=== PATIENT | male | born 1935 | race African-American/Black ===

== ENCOUNTER 2019-06-05 20:35 | Inpatient (IN) | payer MEDICARE, MEDICAID ==
[~2019-06-05] VITALS: Ht 188 cm; Wt 97.5 kg
[~2019-06-05 20:35] MED LIST: DILANTIN PO; FURO80TA87; METF500T; PHEN-434; SIMV5TAB2
[2019-06-05] MEDS ORDERED: NITROGLYCERIN OINT 1GM/INCH UDPKT TD ONE (21:00)
[2019-06-05] MEDS ORDERED: ENALAPRIL 1.25 MG in DEXTROSE 5% WATER 49 ML IV ONE (21:00)
[2019-06-05] MEDS ORDERED: FUROSEMIDE 40MG/4ML VIAL IVP ONE (21:00)
[2019-06-05] MEDS ORDERED: ENALAPRIL 1.25MG/ML VIAL 1ML IV ONE (21:32)
[2019-06-05 21:53] LABS: BG CARBOXYHEMOGLOBIN 0.4 % (0.5-1.5); BG DEOXYHEMOGLOBIN 1.5 % (0.0-5.0); BG FRACTION INSPIRED OXYGEN 40; BG HCO3 ACT 28.7 mmol/L (22.0-26.0); BG METHEMOGLOBIN 0.1 % (0.0-1.5); BG OXYGEN SATURATION 98.5 % (92.0-98.5); BG PCO2 53.4 mmHg (35.0-45.0); BG PH 7.348 (7.350-7.450); BG SAMPLE SITE RIGHT RADIAL; BG TOTAL HEMOGLOBIN 13.3 g/dL (12.0-18.0); BG VENT MODE MASK - BIPAP
[2019-06-05 23:04] LABS: BASOPHILS % 0.5 % (0.0-2.0); EOSINOPHILS % 4.1 % (0.0-5.0); HEMATOCRIT. 35.9 % (42.0-52.0); HEMOGLOBIN. 11.9 g/dL (14.0-18.0); LYMPHOCYTES % 20.9 % (20.0-50.0); MEAN CORPUSCULAR HEMOGLOBIN 27.9 pg (28.0-32.0); MEAN CORPUSCULAR VOLUME 84.4 fL (80.0-94.0); MEAN PLATELET VOLUME 8.9 fl (7.4-10.4); MONOCYTES % 8.4 % (2.0-8.0); NEUTROPHILS % 66.1 % (40.0-76.0); PLATELET 189 x1000/uL (130-400); RED BLOOD CELL COUNT 4.25 mill/uL (4.7-6.1); RED CELL DISTRIBUTION WIDTH 15.5 % (11.6-14.6)
[2019-06-05 23:07] LABS: CHLORIDE 108 mEq/L (98-107)
[2019-06-06] VITALS (13 sets, daily range): BP systolic 110–157; BP diastolic 60–97
[2019-06-06] MEDS ORDERED: ACETAMINOPHEN 325MG TABLET PO PRN (01:45)
[2019-06-06] MEDS ORDERED: HYDROCODONE/ACETAMINOPHEN 5/325MG TABLET PO PRN (01:45)
[2019-06-06] MEDS ORDERED: IPRATROPIUM/ALBUTEROL 0.5-3(2.5)MG/3ML NEB HHN PRN (01:45)
[2019-06-06] MEDS ORDERED: DEXTROSE 50% WATER 50ML SYRINGE IV PRN (01:45)
[2019-06-06] MEDS: METHYLPREDNISOLONE SOD SUCC 40 MG/ML VIAL IV SCH ×3 (03:28→17:50)
[2019-06-06] MEDS: IPRATROPIUM/ALBUTEROL 0.5-3(2.5)MG/3ML NEB HHN SCH ×5 (04:25→20:50)
[2019-06-06 05:50] LABS: BASOPHILS % 0.3 % (0.0-2.0); EOSINOPHILS % 3.7 % (0.0-5.0); HEMATOCRIT. 36.9 % (42.0-52.0); HEMOGLOBIN. 12.2 g/dL (14.0-18.0); MEAN CORPUSCULAR HEMOGLOBIN 28.3 pg (28.0-32.0); MEAN CORPUSCULAR VOLUME 85.2 fL (80.0-94.0); MEAN PLATELET VOLUME 9.3 fl (7.4-10.4); MONOCYTES % 14.5 % (2.0-8.0); NEUTROPHILS % 49.5 % (40.0-76.0); PLATELET 184 x1000/uL (130-400); RED BLOOD CELL COUNT 4.33 mill/uL (4.7-6.1); RED CELL DISTRIBUTION WIDTH 15.6 % (11.6-14.6)
[2019-06-06 06:46] LABS: CHLORIDE 109 mEq/L (98-107)
[2019-06-06 06:56] LABS: LDL CHOLESTEROL 58 mg/dL (5-100)
[2019-06-06 06:57] LABS: HDL CHOLESTEROL 60 mg/dL (40-59)
[2019-06-06] MEDS: BLOOD SUGAR DIAGNOSTIC STRIP TEST SCH ×4 (07:30→20:56)
[2019-06-06] MEDS: INSULIN LISPRO 100 UNITS/ML SUBCUT SCH ×4 (08:00→21:00)
[2019-06-06] MEDS ORDERED: LEVE1000 PO (08:39)
[2019-06-06] MEDS ORDERED: APIX5TAB PO (08:39)
[2019-06-06] MEDS ORDERED: LOSA25TA26 MT (08:47)
[2019-06-06] MEDS ORDERED: AMI2 PO (08:47)
[2019-06-06] MEDS ORDERED: ASPI-1236 PO (08:47)
[2019-06-06] MEDS ORDERED: CARV3.1242 PO (08:47)
[2019-06-06] MEDS ORDERED: SIMV20TA6 MT (08:47)
[2019-06-06] MEDS ORDERED: AMLODIPI PO (08:47)
[2019-06-06] MEDS: PANTOPRAZOLE 40MG DR TABLET PO SCH (09:33)
[2019-06-06] MEDS: ENOXAPARIN 40MG/0.4ML SYR SUBCUT SCH (09:35)
[2019-06-06] MEDS ORDERED: FUROSEMIDE 40MG/4ML VIAL IVP SCH (14:30)
[2019-06-06 15:21] LABS: BG BASE EXCESS 2.1 mmol/L (-2.0-2.0); BG CARBOXYHEMOGLOBIN 0.1 % (0.5-1.5); BG DEOXYHEMOGLOBIN 6.3 % (0.0-5.0); BG FRACTION INSPIRED OXYGEN 21; BG HCO3 ACT 27.5 mmol/L (22.0-26.0); BG METHEMOGLOBIN 0.2 % (0.0-1.5); BG OXYGEN SATURATION 93.7 % (92.0-98.5); BG OXYHEMOGLOBIN 93.4 % (94.0-97.0); BG PH 7.394 (7.350-7.450); BG PO2 68.7 mmHg (75.0-100.0); BG SAMPLE SITE RIGHT RADIAL; BG TOTAL HEMOGLOBIN 12.5 g/dL (12.0-18.0); BG VENT MODE ROOM AIR
[2019-06-06] MEDS: LEVETIRACETAM 500MG TABLET PO SCH ×2 (15:31→20:57)
[2019-06-06] MEDS: PHENYTOIN SODIUM EXTENDED 100MG CAPSULE PO SCH (20:57)
[2019-06-07] VITALS (11 sets, daily range): BP systolic 133–179; BP diastolic 52–93
[2019-06-07] MEDS: METHYLPREDNISOLONE SOD SUCC 40 MG/ML VIAL IV SCH ×3 (01:14→17:07)
[2019-06-07] MEDS: IPRATROPIUM/ALBUTEROL 0.5-3(2.5)MG/3ML NEB HHN SCH ×6 (04:00→20:04)
[2019-06-07] MEDS: BLOOD SUGAR DIAGNOSTIC STRIP TEST SCH ×4 (07:30→21:00)
[2019-06-07] MEDS: INSULIN LISPRO 100 UNITS/ML SUBCUT SCH ×4 (08:00→21:13)
[2019-06-07] MEDS: LEVETIRACETAM 500MG TABLET PO SCH ×2 (08:38→21:12)
[2019-06-07] MEDS: ENOXAPARIN 40MG/0.4ML SYR SUBCUT SCH (08:38)
[2019-06-07] MEDS: PANTOPRAZOLE 40MG DR TABLET PO SCH (08:44)
[2019-06-07] MEDS: CLONIDINE 0.1MG TABLET PO PRN (09:57)
[2019-06-07] MEDS: FUROSEMIDE 20MG TABLET PO SCH (12:00)
[2019-06-07] MEDS ORDERED: REGADENOSON 0.4 MG/5 ML IV NR (13:30)
[2019-06-07 13:43] LABS: T4 FREE 1.18 ng/dL (0.76-1.46)
[2019-06-07 13:55] LABS: BG CARBOXYHEMOGLOBIN 0.2 % (0.5-1.5); BG DEOXYHEMOGLOBIN 6.7 % (0.0-5.0); BG HCO3 ACT 26.7 mmol/L (22.0-26.0); BG METHEMOGLOBIN 0.1 % (0.0-1.5); BG OXYGEN SATURATION 93.3 % (92.0-98.5); BG PCO2 46.3 mmHg (35.0-45.0); BG PH 7.378 (7.350-7.450); BG PO2 67.1 mmHg (75.0-100.0); BG SAMPLE SITE RIGHT RADIAL; BG TOTAL HEMOGLOBIN 12.9 g/dL (12.0-18.0); BG VENT MODE ROOM AIR
[2019-06-07] MEDS ORDERED: DIPHENHYDRAMINE 50MG/ML VIAL IV PRN (14:15)
[2019-06-07] MEDS ORDERED: LACTULOSE 20G/30ML UDC PO PRN (14:15)
[2019-06-07] MEDS ORDERED: HYDRALAZINE 20MG/ML VIAL IV PRN (14:15)
[2019-06-07] MEDS ORDERED: LORAZEPAM 2MG/ML CPJ IV PRN (14:15)
[2019-06-07 16:02] LABS: BASOPHILS % 0.3 % (0.0-2.0); HEMATOCRIT. 34.8 % (42.0-52.0); HEMOGLOBIN. 11.6 g/dL (14.0-18.0); LYMPHOCYTES % 16.7 % (20.0-50.0); MEAN CORPUSCULAR HEMOGLOBIN 27.9 pg (28.0-32.0); MEAN PLATELET VOLUME 9.2 fl (7.4-10.4); MONOCYTES % 7.8 % (2.0-8.0); NEUTROPHILS % 75.2 % (40.0-76.0); PLATELET 184 x1000/uL (130-400); RED BLOOD CELL COUNT 4.15 mill/uL (4.7-6.1); RED CELL DISTRIBUTION WIDTH 15.4 % (11.6-14.6)
[2019-06-07] MEDS ORDERED: LIDOCAINE HCL/PF 1% 2ML VIAL ONE (16:11)
[2019-06-07 16:13] LABS: CHLORIDE 105 mEq/L (98-107)
[2019-06-07 16:17] LABS: PHOSPHORUS 2.7 mg/dL (2.5-4.9)
[2019-06-07] MEDS: PHENYTOIN SODIUM EXTENDED 100MG CAPSULE PO SCH (21:12)
[2019-06-07 23:14] LABS: CLARITY URINE CLEAR (CLEAR); COLOR URINE YELLOW (YELLOW); KETONES URINE NEGATIVE (NEGATIVE); LEUKOCYTE ESTERASE URINE NEGATIVE (NEGATIVE); NITRITE URINE NEGATIVE (NEGATIVE); OCCULT BLOOD URINE NEGATIVE (NEGATIVE); PH URINE 6.5 (4.5-8.0); PROTEIN URINE TRACE (NEGATIVE); SPECIFIC GRAVITY URINE 1.013 (1.005-1.030); UROBILINOGEN URINE 0.2 E.U./dL (0.2-1.0)
[2019-06-08] VITALS (12 sets, daily range): BP systolic 134–167; BP diastolic 70–92
[2019-06-08] MEDS: IPRATROPIUM/ALBUTEROL 0.5-3(2.5)MG/3ML NEB HHN SCH ×6 (00:31→20:09)
[2019-06-08] MEDS: DEXT 5%/0.45% NACL 1000ML 1,000 ML IV SCH ×2 (01:48→20:00)
[2019-06-08] MEDS: METHYLPREDNISOLONE SOD SUCC 40 MG/ML VIAL IV SCH ×2 (02:56→13:42)
[2019-06-08 07:29] LABS: HEMATOCRIT 35.6 % (42.0-52.0); HEMOGLOBIN 11.7 g/dL (14.0-18.0); MEAN CORPUSCULAR HEMOGLOBIN 27.6 pg (28.0-32.0); MEAN CORPUSCULAR VOLUME 84.1 fL (80.0-94.0); PLATELET 180 x1000/uL (130-400); RED BLOOD CELL COUNT 4.23 mill/uL (4.7-6.1); RED CELL DISTRIBUTION WIDTH 15.4 % (11.6-14.6)
[2019-06-08] MEDS: BLOOD SUGAR DIAGNOSTIC STRIP TEST SCH ×4 (07:30→21:50)
[2019-06-08] MEDS: INSULIN LISPRO 100 UNITS/ML SUBCUT SCH ×4 (08:00→21:00)
[2019-06-08 08:17] LABS: CHLORIDE 105 mEq/L (98-107)
[2019-06-08] MEDS: FUROSEMIDE 20MG TABLET PO SCH (08:48)
[2019-06-08] MEDS: LEVETIRACETAM 500MG TABLET PO SCH ×2 (08:48→21:44)
[2019-06-08] MEDS: FAMOTIDINE 20MG TABLET PO SCH (08:49)
[2019-06-08] MEDS: ENOXAPARIN 40MG/0.4ML SYR SUBCUT SCH (08:50)
[2019-06-08] MEDS: PHENYTOIN SODIUM EXTENDED 100MG CAPSULE PO SCH (21:44)
[2019-06-09] VITALS (8 sets, daily range): BP systolic 101–164; BP diastolic 52–91
[2019-06-09] MEDS: IPRATROPIUM/ALBUTEROL 0.5-3(2.5)MG/3ML NEB HHN SCH ×3 (00:07→08:12)
[2019-06-09] MEDS: METHYLPREDNISOLONE SOD SUCC 40 MG/ML VIAL IV SCH (02:31)
[2019-06-09] MEDS: CLONIDINE 0.1MG TABLET PO PRN (02:31)
[2019-06-09] MEDS: BLOOD SUGAR DIAGNOSTIC STRIP TEST SCH (07:30)
[2019-06-09] MEDS: INSULIN LISPRO 100 UNITS/ML SUBCUT SCH (08:00)
[2019-06-09] MEDS: FUROSEMIDE 20MG TABLET PO SCH (08:37)
[2019-06-09] MEDS: LEVETIRACETAM 500MG TABLET PO SCH (08:37)
[2019-06-09] MEDS: FAMOTIDINE 20MG TABLET PO SCH (08:37)
[2019-06-09] MEDS: ENOXAPARIN 40MG/0.4ML SYR SUBCUT SCH (08:38)
== END 2019-06-09 11:35 | disposition home or self-care (01) | DRG 291 ==
LOC: ER 20:35 → 5EST 22:03 → ENRESERV 23:03
PROVIDERS: ADMIT Internal Medicine; ATTEND Internal Medicine
PROC: 5A09357 Assistance with Respiratory Ventilation, Less than 24 Consecutive Hours, Continuous Positive Airway Pressure (ICD-10-PCS; principal; 2019-06-05)
PROC: 5A09357 Assistance with Respiratory Ventilation, Less than 24 Consecutive Hours, Continuous Positive Airway Pressure (ICD-10-PCS; 2019-06-08)
PROC: 5A09357 Assistance with Respiratory Ventilation, Less than 24 Consecutive Hours, Continuous Positive Airway Pressure (ICD-10-PCS; 2019-06-09)
DX: I11.0 Hypertensive heart disease with heart failure (principal); J96.01 Acute respiratory failure with hypoxia; J44.1 Chronic obstructive pulmonary disease with (acute) exacerbation; J45.901 Unspecified asthma with (acute) exacerbation; G93.40 Encephalopathy, unspecified; I50.33 Acute on chronic diastolic (congestive) heart failure; E11.9 Type 2 diabetes mellitus without complications; E87.8 Other disorders of electrolyte and fluid balance, not elsewhere classified; G40.909 Epilepsy, unspecified, not intractable, without status epilepticus; D64.9 Anemia, unspecified; Z95.0 Presence of cardiac pacemaker; Z79.899 Other long term (current) drug therapy
CPT/HCPCS: 36415; 36600; 71045; 78582; 80048; 80061; 80185; 81003; 82140; 82375; 82805; 82962; 83036; 83735; 83880; 84100; 84439; 84443; 84481; 84484; 85027; 85379; 93005; 93306; 94618; 94640; 94660; 99285; A9558; J1650; J1815; J1940; J2060; J2920; J3490; J7060; J7620

== ENCOUNTER 2019-11-13 16:17 | Inpatient (IN) | payer MEDICARE, MEDICAID ==
[~2019-11-13] VITALS: Ht 175.3 cm; Wt 96.8 kg
[~2019-11-13 16:17] MED LIST changes: +AMI2 PO; +AMLODIPI PO; +APIX5TAB PO; +ASPI-1488 PO; +CARV3.1242 PO; +LEVE1000 PO; +LOSA25TA26 MT; +SIMV-43 MT
[2019-11-13] MEDS ORDERED: IPRATROPIUM BROMIDE (0.02%) 0.5MG/2.5ML NEB HHN STA (16:20)
[2019-11-13] MEDS ORDERED: ALBUTEROL (0.083%) 2.5MG/3ML NEB HHN STA (16:20)
[2019-11-13] MEDS ORDERED: FUROSEMIDE 40MG/4ML VIAL IVP ONE (16:30)
[2019-11-13 16:43] LABS: BG BASE EXCESS -2.1 mmol/L (-2.0-2.0); BG BILEVEL POS AIRWAY PRESSURE 16/5; BG CARBOXYHEMOGLOBIN 0.8 % (0.5-1.5); BG DEOXYHEMOGLOBIN 0.4 % (0.0-5.0); BG FRACTION INSPIRED OXYGEN 70; BG HCO3 ACT 24.5 mmol/L (22.0-26.0); BG METHEMOGLOBIN 0.2 % (0.0-1.5); BG OXYGEN SATURATION 99.6 % (92.0-98.5); BG OXYHEMOGLOBIN 98.6 % (94.0-97.0); BG PCO2 49.4 mmHg (35.0-45.0); BG PH 7.313 (7.350-7.450); BG PO2 311.7 mmHg (75.0-100.0); BG SAMPLE SITE RIGHT RADIAL; BG TOTAL HEMOGLOBIN 12.8 g/dL (12.0-18.0); BG VENT MODE MASK - BIPAP
[2019-11-13 16:59] LABS: BASOPHILS % 0.4 % (0.0-2.0); EOSINOPHILS % 5.2 % (0.0-5.0); HEMOGLOBIN. 12.9 g/dL (14.0-18.0); LYMPHOCYTES % 55.3 % (20.0-50.0); MEAN CORPUSCULAR HEMOGLOBIN 28.1 pg (28.0-32.0); MEAN CORPUSCULAR VOLUME 84.8 fL (80.0-94.0); MEAN PLATELET VOLUME 9.3 fl (7.4-10.4); MONOCYTES % 10.4 % (2.0-8.0); NEUTROPHILS % 28.7 % (40.0-76.0); PLATELET 238 x1000/uL (130-400); RED BLOOD CELL COUNT 4.59 mill/uL (4.7-6.1); RED CELL DISTRIBUTION WIDTH 15.2 % (11.6-14.6)
[2019-11-13 17:11] LABS: CHLORIDE 108 mEq/L (98-107)
[2019-11-13 20:00] VITALS: BP 140/63
[2019-11-13 21:00] VITALS: BP 129/65
[2019-11-13 22:00] VITALS: BP 157/79
[2019-11-14] VITALS (11 sets, daily range): BP systolic 122–166; BP diastolic 53–82
[2019-11-14] MEDS ORDERED: ACETAMINOPHEN 650MG SUPP PR PRN
[2019-11-14] MEDS ORDERED: ACETAMINOPHEN 650MG/20.3ML UDC GT PRN
[2019-11-14] MEDS ORDERED: ONDANSETRON HCL 4MG/2ML INJ IV PRN
[2019-11-14] MEDS: METHYLPREDNISOLONE SOD SUCC 125 MG/2 ML VIAL IV SCH ×4 (00:53→17:07)
[2019-11-14] MEDS: LOSARTAN POTASSIUM 25 MG TABLET PO SCH ×3 (00:55→20:23)
[2019-11-14] MEDS: IPRATROPIUM/ALBUTEROL 0.5-3(2.5)MG/3ML NEB HHN SCH ×7 (00:55→23:59)
[2019-11-14] MEDS: CARVEDILOL 3.125 MG TABLET PO SCH ×3 (00:55→20:23)
[2019-11-14] MEDS: FUROSEMIDE 40MG/4ML VIAL IV SCH ×3 (00:55→20:22)
[2019-11-14] MEDS: APIXABAN 5 MG TABLET PO SCH ×3 (00:55→17:04)
[2019-11-14] MEDS ORDERED: DEXTROSE 50% WATER 50ML SYRINGE IV PRN (02:30)
[2019-11-14] MEDS: LEVOFLOXACIN 250MG PREMIX 50 ML IV SCH (03:17)
[2019-11-14] MEDS: BLOOD SUGAR DIAGNOSTIC STRIP TEST SCH ×4 (05:54→20:23)
[2019-11-14 06:38] LABS: BASOPHILS % 0.4 % (0.0-2.0); EOSINOPHILS % 0.3 % (0.0-5.0); HEMATOCRIT. 36.1 % (42.0-52.0); HEMOGLOBIN. 11.8 g/dL (14.0-18.0); LYMPHOCYTES % 19.5 % (20.0-50.0); MEAN CORPUSCULAR HEMOGLOBIN 27.6 pg (28.0-32.0); MEAN CORPUSCULAR VOLUME 84.3 fL (80.0-94.0); MEAN PLATELET VOLUME 9.1 fl (7.4-10.4); MONOCYTES % 2.6 % (2.0-8.0); NEUTROPHILS % 77.2 % (40.0-76.0); PLATELET 193 x1000/uL (130-400); RED BLOOD CELL COUNT 4.28 mill/uL (4.7-6.1); RED CELL DISTRIBUTION WIDTH 14.8 % (11.6-14.6)
[2019-11-14] MEDS: INSULIN LISPRO 100 UNITS/ML SUBCUT SCH ×4 (07:20→22:01)
[2019-11-14 07:41] LABS: CHLORIDE 107 mEq/L (98-107)
[2019-11-14 07:54] LABS: CREATINE KINASE MB FRACTION 1.2 ng/mL (0.5-3.6); T4 FREE 1.21 ng/dL (0.76-1.46)
[2019-11-14 07:57] LABS: CREATINE KINASE 47 IU/L (39-308); HDL CHOLESTEROL 62 mg/dL (40-59); LDL CHOLESTEROL 56 mg/dL (5-100)
[2019-11-14] MEDS: AMIODARONE HCL 200 MG TABLET PO SCH (08:56)
[2019-11-14 15:37] LABS: CREATINE KINASE 59 IU/L (39-308); CREATINE KINASE MB FRACTION 1.6 ng/mL (0.5-3.6)
[2019-11-14] MEDS: ASPIRIN 81MG TABLET PO SCH (17:10)
[2019-11-14] MEDS ORDERED: ATORVASTATIN CALCIUM 20MG TABLET PO SCH (21:00)
[2019-11-15] VITALS (12 sets, daily range): BP systolic 137–175; BP diastolic 58–94
[2019-11-15] MEDS: LEVOFLOXACIN 250MG PREMIX 50 ML IV SCH (01:54)
[2019-11-15] MEDS: METHYLPREDNISOLONE SOD SUCC 125 MG/2 ML VIAL IV SCH ×2 (01:54→05:58)
[2019-11-15] MEDS: IPRATROPIUM/ALBUTEROL 0.5-3(2.5)MG/3ML NEB HHN SCH ×4 (04:19→17:13)
[2019-11-15] MEDS: BLOOD SUGAR DIAGNOSTIC STRIP TEST SCH ×3 (05:59→17:21)
[2019-11-15] MEDS: INSULIN LISPRO 100 UNITS/ML SUBCUT SCH ×3 (08:11→17:20)
[2019-11-15] MEDS: AMIODARONE HCL 200 MG TABLET PO SCH (08:11)
[2019-11-15] MEDS: APIXABAN 5 MG TABLET PO SCH ×2 (08:11→17:57)
[2019-11-15] MEDS: CARVEDILOL 3.125 MG TABLET PO SCH (08:12)
[2019-11-15] MEDS: FUROSEMIDE 40MG/4ML VIAL IV SCH (08:13)
[2019-11-15] MEDS: LOSARTAN POTASSIUM 25 MG TABLET PO SCH (08:18)
[2019-11-15 12:22] LABS: BG BASE EXCESS -1.7 mmol/L (-2.0-2.0); BG CARBOXYHEMOGLOBIN 0.3 % (0.5-1.5); BG FRACTION INSPIRED OXYGEN 21; BG HCO3 ACT 23.2 mmol/L (22.0-26.0); BG METHEMOGLOBIN 0.1 % (0.0-1.5); BG OXYHEMOGLOBIN 92.6 % (94.0-97.0); BG PCO2 40.2 mmHg (35.0-45.0); BG PO2 65.5 mmHg (75.0-100.0); BG SAMPLE SITE LEFT RADIAL; BG TOTAL HEMOGLOBIN 13.4 g/dL (12.0-18.0); BG VENT MODE ROOM AIR
[2019-11-15] MEDS ORDERED: LOSARTAN POTASSIUM 25 MG TABLET PO NR (13:15)
[2019-11-15] MEDS ORDERED: IPRA3AMP9 NEB (14:20)
[2019-11-15] MEDS ORDERED: LEVO500T2 MT (14:20)
[2019-11-15] MEDS ORDERED: AMLO10TA4 MT (14:20)
[2019-11-15] MEDS ORDERED: P20 PO (14:20)
[2019-11-15] MEDS ORDERED: BLOO1KIT74 TP (14:20)
[2019-11-15] MEDS ORDERED: LOSA50TA3 MT (14:20)
[2019-11-15] MEDS: ASPIRIN 81MG TABLET PO SCH (17:57)
[2019-11-15] MEDS ORDERED: METHYLPREDNISOLONE SOD SUCC 40 MG/ML VIAL IV SCH (20:00)
[2019-11-15] MEDS ORDERED: LOSARTAN POTASSIUM 50 MG TABLET PO SCH (21:00)
== END 2019-11-15 21:10 | disposition home health service (06) | DRG 291 ==
LOC: ER 16:17 → 3WST 18:51 → EDBEDREQSVC 18:54 → EDBEDREQ 18:54 → ENRESERV 19:43
PROVIDERS: ADMIT Internal Medicine; ATTEND Internal Medicine
PROC: 5A09357 Assistance with Respiratory Ventilation, Less than 24 Consecutive Hours, Continuous Positive Airway Pressure (ICD-10-PCS; principal; 2019-11-13)
DX: I11.0 Hypertensive heart disease with heart failure (principal); J18.9 Pneumonia, unspecified organism; J96.01 Acute respiratory failure with hypoxia; J44.1 Chronic obstructive pulmonary disease with (acute) exacerbation; J44.0 Chronic obstructive pulmonary disease with (acute) lower respiratory infection; I50.33 Acute on chronic diastolic (congestive) heart failure; D64.9 Anemia, unspecified; E11.9 Type 2 diabetes mellitus without complications; I35.1 Nonrheumatic aortic (valve) insufficiency; E04.9 Nontoxic goiter, unspecified; I16.0 Hypertensive urgency; G40.909 Epilepsy, unspecified, not intractable, without status epilepticus; Z79.01 Long term (current) use of anticoagulants; Z79.84 Long term (current) use of oral hypoglycemic drugs; Z79.899 Other long term (current) drug therapy; Z87.820 Personal history of traumatic brain injury; Z79.82 Long term (current) use of aspirin
CPT/HCPCS: 36415; 36600; 71045; 71250; 80053; 80061; 82375; 82550; 82553; 82805; 82962; 83036; 83880; 84439; 84443; 84484; 85025; 93005; 93970; 94618; 94640; 94660; 97162; 99291; J1815; J1940; J1956; J2930

== ENCOUNTER 2019-11-26 18:54 | Inpatient (IN) | payer MEDICARE, MEDICAID ==
[~2019-11-26] VITALS: Ht 188 cm; Wt 93.9 kg
[~2019-11-26 18:54] MED LIST changes: +AMLO10TA4 MT; -AMLODIPI PO; +BLOO1KIT74 TP; +IPRA3AMP9 NEB; +LEVO500T2 MT; -LOSA25TA26 MT; +LOSA50TA3 MT; -METF500T; +P20 PO; -PHEN-434; -SIMV5TAB2
[2019-11-26] MEDS ORDERED: FUROSEMIDE 40MG/4ML VIAL IV ONE (19:45)
[2019-11-26 20:15] LABS: BASOPHILS % 0.4 % (0.0-2.0); EOSINOPHILS % 1.3 % (0.0-5.0); HEMATOCRIT. 43.4 % (42.0-52.0); HEMOGLOBIN. 14.2 g/dL (14.0-18.0); LYMPHOCYTES % 21.7 % (20.0-50.0); MEAN CORPUSCULAR HEMOGLOBIN 27.9 pg (28.0-32.0); MEAN CORPUSCULAR VOLUME 85.1 fL (80.0-94.0); MEAN PLATELET VOLUME 9.4 fl (7.4-10.4); NEUTROPHILS % 68.6 % (40.0-76.0); PLATELET 235 x1000/uL (130-400); RED CELL DISTRIBUTION WIDTH 16.3 % (11.6-14.6)
[2019-11-26 23:23] LABS: CHLORIDE 104 mEq/L (98-107)
[2019-11-27] MEDS ORDERED: AZITHROMYCIN 500 MG in DEXT 5% WATER 250 ML IV STA (00:10)
[2019-11-27] MEDS ORDERED: CEFTRIAXONE 2 G PREMIX 50 ML IV ONE (00:15)
[2019-11-27] MEDS ORDERED: FUROSEMIDE 20MG/2ML VIAL IV SCH (09:00)
[2019-11-27 10:12] LABS: CHLORIDE 104 mEq/L (98-107)
[2019-11-27] MEDS ORDERED: ONDANSETRON HCL 4MG/2ML INJ IV PRN (10:45)
[2019-11-27] MEDS ORDERED: NA PHOS,M-B/NA PHOS,DI-BA ENEMA 118ML PR PRN (10:45)
[2019-11-27] MEDS ORDERED: HYDROCODONE/ACETAMINOPHEN 5/325MG TABLET PO PRN (10:45)
[2019-11-27] MEDS ORDERED: MAGNESIUM/ALUMINUM HYDROXIDE/SIMETHICONE 30ML UDC PO PRN (10:45)
[2019-11-27] MEDS ORDERED: LORAZEPAM 0.5MG TABLET PO PRN (10:45)
[2019-11-27] MEDS ORDERED: ACETAMINOPHEN 650MG SUPP PR PRN (10:45)
[2019-11-27] MEDS ORDERED: DOCUSATE SODIUM 100MG CAPSULE PO PRN (10:45)
[2019-11-27] MEDS ORDERED: DEXTROSE 50% WATER 50ML SYRINGE IV PRN (10:45)
[2019-11-27] MEDS ORDERED: GUAIFENESIN 200MG/10ML SUGAR FREE UDC PO PRN (10:45)
[2019-11-27] MEDS ORDERED: ACETAMINOPHEN 325MG TABLET PO PRN (10:45)
[2019-11-27 11:14] LABS: BG BASE EXCESS 2.3 mmol/L (-2.0-2.0); BG DEOXYHEMOGLOBIN 2.4 % (0.0-5.0); BG FRACTION INSPIRED OXYGEN 28; BG HCO3 ACT 27.3 mmol/L (22.0-26.0); BG METHEMOGLOBIN 0.1 % (0.0-1.5); BG OXYGEN SATURATION 97.6 % (92.0-98.5); BG OXYHEMOGLOBIN 97.5 % (94.0-97.0); BG PCO2 43.6 mmHg (35.0-45.0); BG PH 7.414 (7.350-7.450); BG PO2 103.3 mmHg (75.0-100.0); BG SAMPLE SITE RIGHT RADIAL; BG TOTAL HEMOGLOBIN 12.4 g/dL (12.0-18.0); BG VENT MODE NASAL CANNULA
[2019-11-27] MEDS ORDERED: CEFTRIAXONE 1 G PREMIX 50 ML IV SCH (11:30)
[2019-11-27] MEDS ORDERED: IPRATROPIUM/ALBUTEROL 0.5-3(2.5)MG/3ML NEB NEB SCH (12:00)
[2019-11-27 12:41] LABS: D-DIMER 1.11 mg/L FEU (<0.50); INR 1.1; PROTHROMBIN TIME 11.5 sec (9.6-11.0)
[2019-11-27] MEDS: BLOOD SUGAR DIAGNOSTIC STRIP TEST SCH ×3 (13:00→21:00)
[2019-11-27 13:12] LABS: BASOPHILS % 1.1 % (0.0-2.0); HEMATOCRIT. 37.6 % (42.0-52.0); HEMOGLOBIN. 12.4 g/dL (14.0-18.0); MEAN CORPUSCULAR VOLUME 85.1 fL (80.0-94.0); MEAN PLATELET VOLUME 9.6 fl (7.4-10.4); MONOCYTES % 10.9 % (2.0-8.0); PLATELET 183 x1000/uL (130-400); RED BLOOD CELL COUNT 4.42 mill/uL (4.7-6.1); RED CELL DISTRIBUTION WIDTH 15.9 % (11.6-14.6)
[2019-11-27] MEDS: INSULIN LISPRO 100 UNITS/ML SUBCUT SCH ×3 (13:15→21:00)
[2019-11-27] MEDS: CLONIDINE 0.1MG TABLET PO PRN (19:20)
[2019-11-27 21:25] VITALS: BP 158/98
[2019-11-27] MEDS ORDERED: IPRATROPIUM/ALBUTEROL 0.5-3(2.5)MG/3ML NEB NEB PRN (22:00)
[2019-11-27] MEDS ORDERED: DIPHENHYDRAMINE 50MG/ML VIAL IV PRN (23:00)
[2019-11-27 23:03] LABS: CLARITY URINE CLEAR (CLEAR); COLOR URINE YELLOW (YELLOW); KETONES URINE NEGATIVE (NEGATIVE); LEUKOCYTE ESTERASE URINE NEGATIVE (NEGATIVE); NITRITE URINE NEGATIVE (NEGATIVE); OCCULT BLOOD URINE NEGATIVE (NEGATIVE); PROTEIN URINE NEGATIVE (NEGATIVE); SPECIFIC GRAVITY URINE 1.017 (1.005-1.030); UROBILINOGEN URINE 0.2 E.U./dL (0.2-1.0)
[2019-11-28] VITALS: BP 170/86
[2019-11-28] MEDS: CLONIDINE 0.1MG TABLET PO PRN ×2 (00:56→21:00)
[2019-11-28] MEDS: AZITHROMYCIN 500 MG in DEXT 5% WATER 250 ML IV SCH (00:56)
[2019-11-28 04:20] VITALS: BP 157/64
[2019-11-28] MEDS: BLOOD SUGAR DIAGNOSTIC STRIP TEST SCH ×4 (06:40→21:00)
[2019-11-28] MEDS: INSULIN LISPRO 100 UNITS/ML SUBCUT SCH ×4 (06:57→21:00)
[2019-11-28 08:00] VITALS: BP 150/76
[2019-11-28] MEDS: CEFTRIAXONE 1 G PREMIX 50 ML IV SCH (09:51)
[2019-11-28] MEDS: FUROSEMIDE 40MG/4ML VIAL IV SCH (09:51)
[2019-11-28] MEDS: ASPIRIN 81MG EC TABLET PO SCH (09:51)
[2019-11-28 12:00] VITALS: BP 145/79
[2019-11-28 12:28] LABS: BASOPHILS % 0.8 % (0.0-2.0); EOSINOPHILS % 4.4 % (0.0-5.0); HEMATOCRIT. 45.1 % (42.0-52.0); HEMOGLOBIN. 14.7 g/dL (14.0-18.0); LYMPHOCYTES % 15.7 % (20.0-50.0); MEAN CORPUSCULAR HEMOGLOBIN 27.9 pg (28.0-32.0); MEAN CORPUSCULAR VOLUME 85.7 fL (80.0-94.0); MEAN PLATELET VOLUME 9.3 fl (7.4-10.4); MONOCYTES % 12.7 % (2.0-8.0); NEUTROPHILS % 66.4 % (40.0-76.0); PLATELET 187 x1000/uL (130-400); RED BLOOD CELL COUNT 5.26 mill/uL (4.7-6.1); RED CELL DISTRIBUTION WIDTH 15.9 % (11.6-14.6)
[2019-11-28 12:38] LABS: CHLORIDE 104 mEq/L (98-107)
[2019-11-28 12:48] LABS: LDL CHOLESTEROL 66 mg/dL (5-100)
[2019-11-28 12:50] LABS: CREATINE KINASE 175 IU/L (39-308); CREATINE KINASE MB FRACTION 3.3 ng/mL (0.5-3.6); HDL CHOLESTEROL 77 mg/dL (40-59); T4 FREE 1.45 ng/dL (0.76-1.46)
[2019-11-28] MEDS: LOSARTAN POTASSIUM 50 MG TABLET PO SCH (13:13)
[2019-11-28 16:00] VITALS: BP 158/79
[2019-11-28 20:00] VITALS: BP 190/88
[2019-11-29] MEDS: AZITHROMYCIN 500 MG in DEXT 5% WATER 250 ML IV SCH (00:56)
[2019-11-29 04:00] VITALS: BP 145/109
[2019-11-29 06:20] LABS: BASOPHILS % 0.5 % (0.0-2.0); EOSINOPHILS % 5.6 % (0.0-5.0); HEMATOCRIT. 38.5 % (42.0-52.0); HEMOGLOBIN. 12.8 g/dL (14.0-18.0); LYMPHOCYTES % 24.4 % (20.0-50.0); MEAN CORPUSCULAR HEMOGLOBIN 28.1 pg (28.0-32.0); MEAN CORPUSCULAR VOLUME 84.2 fL (80.0-94.0); MEAN PLATELET VOLUME 9.5 fl (7.4-10.4); MONOCYTES % 14.7 % (2.0-8.0); NEUTROPHILS % 54.8 % (40.0-76.0); PLATELET 184 x1000/uL (130-400); RED BLOOD CELL COUNT 4.57 mill/uL (4.7-6.1); RED CELL DISTRIBUTION WIDTH 15.4 % (11.6-14.6)
[2019-11-29 06:25] LABS: CHLORIDE 103 mEq/L (98-107)
[2019-11-29 08:00] VITALS: BP 151/76
[2019-11-29] MEDS: INSULIN LISPRO 100 UNITS/ML SUBCUT SCH ×3 (08:10→17:20)
[2019-11-29] MEDS: BLOOD SUGAR DIAGNOSTIC STRIP TEST SCH ×3 (08:25→17:19)
[2019-11-29] MEDS: LOSARTAN POTASSIUM 50 MG TABLET PO SCH (08:26)
[2019-11-29] MEDS: ASPIRIN 81MG EC TABLET PO SCH (08:26)
[2019-11-29] MEDS: FUROSEMIDE 40MG/4ML VIAL IV SCH (08:26)
[2019-11-29] MEDS: CEFTRIAXONE 1 G PREMIX 50 ML IV SCH (08:57)
[2019-11-29] MEDS ORDERED: AMLODIPINE 10MG TABLET PO SCH (09:00)
[2019-11-29 12:00] VITALS: BP 138/79
[2019-11-29] MEDS ORDERED: LEVO500T2 PO (13:20)
[2019-11-29 14:53] VITALS: BP 138/79
[2019-11-29 16:00] VITALS: BP 135/64
[2019-11-30] MEDS ORDERED: AZITHROMYCIN 500 MG TABLET PO SCH (09:00)
== END 2019-11-29 19:16 | disposition home or self-care (01) | DRG 291 ==
LOC: ER 18:54 → 7EST 11-27 00:11 → EDBEDREQDT 11-27 00:23 → EDBEDREQ 11-27 00:23 → EDBEDREQTM 11-27 00:23 → ENRESERV 11-27 19:25 → 7WST 11-28 23:20
PROVIDERS: ADMIT Internal Medicine; ATTEND Internal Medicine
DX: I11.0 Hypertensive heart disease with heart failure (principal); I50.31 Acute diastolic (congestive) heart failure; J44.1 Chronic obstructive pulmonary disease with (acute) exacerbation; G40.909 Epilepsy, unspecified, not intractable, without status epilepticus; F03.90 Unspecified dementia, unspecified severity, without behavioral disturbance, psychotic disturbance, mood disturbance, and anxiety; E11.9 Type 2 diabetes mellitus without complications; R06.03 Acute respiratory distress; D64.9 Anemia, unspecified; I35.1 Nonrheumatic aortic (valve) insufficiency; Z78.9 Other specified health status; Z79.01 Long term (current) use of anticoagulants; Z79.899 Other long term (current) drug therapy; Z87.820 Personal history of traumatic brain injury; Z79.82 Long term (current) use of aspirin
CPT/HCPCS: 36415; 36600; 71045; 80048; 80053; 80061; 81003; 82375; 82550; 82553; 82805; 82962; 83880; 84439; 84443; 84484; 85025; 85379; 87070; 87635; 87804; 93005; 96365; 96366; 96367; 96368; 96375; 96376; 99285; J0456; J0696; J1815; J1940; J7060

== ENCOUNTER → 2021-02-08 | Outpatient (CLI) | payer MEDICARE, MEDICAID ==
[~2021-02-08] MED LIST changes: -AMI2 PO; -ASPI-1488 PO; +BARIUM SULFATE 176 GM SUSP.RECON ONE; -BLOO1KIT74 TP; +FLUT1AER INH; +FURO40TA5 MT; -FURO80TA87; -LEVE1000 PO; +LEVE10006 PO; -LEVO500T2 MT; +P20 MT; -P20 PO
== END | disposition home or self-care (01) ==
LOC: RAD 10:40
PROVIDERS: ATTEND Internal Medicine
DX: R06.02 Shortness of breath (principal)
CPT/HCPCS: 74220

== ENCOUNTER 2022-08-09 14:23 | Inpatient (IN) | payer MEDICARE, MEDICAID ==
[~2022-08-09] VITALS: Ht 190.5 cm; Wt 98.1 kg
[~2022-08-09 14:23] MED LIST changes: -BARIUM SULFATE 176 GM SUSP.RECON ONE
[2022-08-09] MEDS ORDERED: SODIUM CHLORIDE 0.9% 1,000 ML IV ONE (15:00)
[2022-08-09 16:27] LABS: BASOPHILS % 0.3 % (0.0-2.0); EOSINOPHILS % 0.7 % (0.0-5.0); HEMATOCRIT. 39.7 % (42.0-52.0); HEMOGLOBIN. 12.7 g/dL (14.0-18.0); INR 1.2; LYMPHOCYTES % 10.7 % (20.0-50.0); MEAN CORPUSCULAR HEMOGLOBIN 27.2 pg (28.0-32.0); MEAN PLATELET VOLUME 9.1 fl (7.4-10.4); MONOCYTES % 13.9 % (2.0-8.0); NEUTROPHILS % 74.4 % (40.0-76.0); PLATELET 169 x1000/uL (130-400); PROTHROMBIN TIME 12.8 sec (9.6-11.0); RED BLOOD CELL COUNT 4.68 mill/uL (4.7-6.1); RED CELL DISTRIBUTION WIDTH 15.7 % (11.6-14.6)
[2022-08-09] MEDS ORDERED: ASPIRIN 81MG TABLET PO ONE (17:45)
[2022-08-09] MEDS ORDERED: PIPERACILLIN/TAZ 3.375G PREMIX 50 ML IV ONE (17:45)
[2022-08-09] MEDS ORDERED: FUROSEMIDE 40MG/4ML VIAL IV ONE (17:45)
[2022-08-09] MEDS ORDERED: OSELTAMIVIR 75MG CAPSULE PO ONE (17:45)
[2022-08-09] MEDS ORDERED: VANCOMYCIN 1G PREMIX 200 ML IV ONE (17:45)
[2022-08-09] MEDS ORDERED: DEXAMETHASONE 10 MG/ML VIAL IV ONE (18:00)
[2022-08-09 18:03] LABS: CHLORIDE 107 mEq/L (98-107)
[2022-08-09] MEDS ORDERED: ASPIRIN 81MG TABLET PO NR (19:30)
[2022-08-09] MEDS ORDERED: FUROSEMIDE 40MG/4ML VIAL IV NR (19:30)
[2022-08-09] MEDS ORDERED: OSELTAMIVIR 75MG CAPSULE PO NR (19:30)
[2022-08-09] MEDS ORDERED: VANCOMYCIN 1G PREMIX 200 ML IV NR (19:30)
[2022-08-09 20:21] LABS: CLARITY URINE CLEAR (CLEAR); COLOR URINE YELLOW (YELLOW); KETONES URINE NEGATIVE (NEGATIVE); LEUKOCYTE ESTERASE URINE NEGATIVE (NEGATIVE); NITRITE URINE NEGATIVE (NEGATIVE); OCCULT BLOOD URINE NEGATIVE (NEGATIVE); PH URINE 5.5 (4.5-8.0); PROTEIN URINE TRACE (NEGATIVE); SPECIFIC GRAVITY URINE 1.022 (1.005-1.030)
[2022-08-10 11:04] VITALS: BP 144/68
[2022-08-10 11:07] VITALS: BP 141/68
[2022-08-10] MEDS ORDERED: ACETAMINOPHEN 325MG TABLET PO PRN (11:15)
[2022-08-10] MEDS ORDERED: ONDANSETRON HCL 4MG/2ML INJ IV PRN (11:15)
[2022-08-10 12:00] VITALS: BP 133/66
[2022-08-10] MEDS ORDERED: CHOL400D7 PO (12:03)
[2022-08-10] MEDS ORDERED: METF-873 PO (12:03)
[2022-08-10] MEDS ORDERED: FERR324T4 PO (12:03)
[2022-08-10] MEDS ORDERED: VALS160T28 PO (12:03)
[2022-08-10] MEDS: FUROSEMIDE 40MG/4ML VIAL IVP SCH (13:05)
[2022-08-10] MEDS: AMLODIPINE 10MG TABLET PO SCH (13:06)
[2022-08-10] MEDS: CARVEDILOL 3.125 MG TABLET PO SCH ×2 (13:06→23:25)
[2022-08-10 16:00] VITALS: BP 130/69
[2022-08-10] MEDS: APIXABAN 5 MG TABLET PO SCH (17:35)
[2022-08-10 20:00] VITALS: BP 145/64
[2022-08-10] MEDS: IPRATROPIUM/ALBUTEROL 0.5-3(2.5)MG/3ML NEB NEB SCH (20:57)
[2022-08-10 23:21] VITALS: BP 153/78
[2022-08-11 04:30] VITALS: BP 157/81
[2022-08-11 06:40] LABS: BASOPHILS % 0.4 % (0.0-2.0); EOSINOPHILS % 0.1 % (0.0-5.0); HEMATOCRIT. 39.6 % (42.0-52.0); LYMPHOCYTES % 15.2 % (20.0-50.0); MEAN CORPUSCULAR HEMOGLOBIN 27.6 pg (28.0-32.0); MEAN PLATELET VOLUME 9.6 fl (7.4-10.4); MONOCYTES % 12.8 % (2.0-8.0); NEUTROPHILS % 71.5 % (40.0-76.0); PLATELET 165 x1000/uL (130-400); RED BLOOD CELL COUNT 4.71 mill/uL (4.7-6.1); RED CELL DISTRIBUTION WIDTH 15.5 % (11.6-14.6)
[2022-08-11 06:55] LABS: CHLORIDE 108 mEq/L (98-107)
[2022-08-11 08:00] VITALS: BP 171/82
[2022-08-11] MEDS ORDERED: FUROSEMIDE 40MG TABLET PO SCH (09:00)
[2022-08-11] MEDS: AMLODIPINE 10MG TABLET PO SCH (09:18)
[2022-08-11] MEDS: CARVEDILOL 3.125 MG TABLET PO SCH ×2 (09:18→22:07)
[2022-08-11] MEDS: APIXABAN 5 MG TABLET PO SCH ×2 (09:18→17:42)
[2022-08-11] MEDS: FUROSEMIDE 40MG/4ML VIAL IVP SCH (09:19)
[2022-08-11] MEDS: IPRATROPIUM/ALBUTEROL 0.5-3(2.5)MG/3ML NEB NEB SCH ×2 (11:03→13:05)
[2022-08-11 12:00] VITALS: BP 157/80
[2022-08-11 16:00] VITALS: BP 165/80
[2022-08-11] MEDS: HYDRALAZINE 20MG/ML VIAL IV PRN (17:49)
[2022-08-11 20:00] VITALS: BP 178/84
[2022-08-12] VITALS: BP 153/75
[2022-08-12 04:00] VITALS: BP 144/75
[2022-08-12 08:00] VITALS: BP 156/84
[2022-08-12] MEDS: AMLODIPINE 10MG TABLET PO SCH (09:07)
[2022-08-12] MEDS: FUROSEMIDE 40MG/4ML VIAL IVP SCH (09:07)
[2022-08-12] MEDS: CARVEDILOL 3.125 MG TABLET PO SCH ×2 (09:07→21:27)
[2022-08-12] MEDS: APIXABAN 5 MG TABLET PO SCH ×2 (09:07→17:44)
[2022-08-12 12:00] VITALS: BP 117/78
[2022-08-12 16:00] VITALS: BP 166/78
[2022-08-12] MEDS: HYDRALAZINE 20MG/ML VIAL IV PRN (18:18)
[2022-08-12 20:00] VITALS: BP 166/77
[2022-08-13] VITALS: BP 162/77
[2022-08-13] MEDS: HYDRALAZINE 20MG/ML VIAL IV PRN (00:30)
[2022-08-13 02:00] VITALS: BP 143/65
[2022-08-13 04:00] VITALS: BP 158/75
[2022-08-13] MEDS: AMLODIPINE 10MG TABLET PO SCH (09:12)
[2022-08-13] MEDS: FUROSEMIDE 40MG/4ML VIAL IVP SCH (09:12)
[2022-08-13] MEDS: APIXABAN 5 MG TABLET PO SCH ×2 (09:12→17:30)
[2022-08-13] MEDS: CARVEDILOL 3.125 MG TABLET PO SCH ×2 (09:13→22:32)
[2022-08-13 12:00] VITALS: BP 147/69
[2022-08-13 15:18] LABS: BG BASE EXCESS 2.4 mmol/L (-2.0-2.0); BG CARBOXYHEMOGLOBIN 0.9 % (0.5-1.5); BG DEOXYHEMOGLOBIN 5.8 % (0.0-5.0); BG FRACTION INSPIRED OXYGEN 21; BG HCO3 ACT 25.5 mmol/L (22.0-26.0); BG METHEMOGLOBIN 0.2 % (0.0-1.5); BG OXYGEN SATURATION 94.1 % (92.0-98.5); BG OXYHEMOGLOBIN 93.1 % (94.0-97.0); BG PCO2 34.7 mmHg (35.0-45.0); BG PH 7.484 (7.350-7.450); BG PO2 65.7 mmHg (75.0-100.0); BG SAMPLE SITE RIGHT BRACHIAL; BG TOTAL HEMOGLOBIN 12.7 g/dL (12.0-18.0); BG VENT MODE ROOM AIR
[2022-08-13 16:00] VITALS: BP 148/80
[2022-08-13 20:00] VITALS: BP 156/80
[2022-08-14] VITALS: BP 156/77
[2022-08-14 04:00] VITALS: BP 155/76
[2022-08-14 08:00] VITALS: BP 163/77
[2022-08-14] MEDS: FUROSEMIDE 40MG/4ML VIAL IVP SCH (09:06)
[2022-08-14] MEDS: CARVEDILOL 3.125 MG TABLET PO SCH ×2 (09:07→21:03)
[2022-08-14] MEDS: APIXABAN 5 MG TABLET PO SCH ×2 (09:07→16:50)
[2022-08-14] MEDS: AMLODIPINE 10MG TABLET PO SCH (09:07)
[2022-08-14 12:00] VITALS: BP 128/66
[2022-08-14 16:00] VITALS: BP 158/85
[2022-08-14 20:00] VITALS: BP 140/65
[2022-08-14] MEDS: IPRATROPIUM/ALBUTEROL 0.5-3(2.5)MG/3ML NEB NEB SCH (22:18)
[2022-08-15] VITALS: BP 149/74
[2022-08-15 04:00] VITALS: BP 157/79
[2022-08-15 08:00] VITALS: BP 125/83
[2022-08-15] MEDS: FUROSEMIDE 40MG/4ML VIAL IVP SCH (08:56)
[2022-08-15] MEDS: APIXABAN 5 MG TABLET PO SCH ×2 (08:56→16:25)
[2022-08-15] MEDS: CARVEDILOL 3.125 MG TABLET PO SCH (08:56)
[2022-08-15] MEDS: AMLODIPINE 10MG TABLET PO SCH (08:57)
[2022-08-15] MEDS: IPRATROPIUM/ALBUTEROL 0.5-3(2.5)MG/3ML NEB NEB SCH (09:11)
[2022-08-15 12:00] VITALS: BP 130/67
[2022-08-15] MEDS ORDERED: LEVETIRACETAM 500MG TABLET PO SCH (12:15)
[2022-08-15] MEDS ORDERED: PHENYTOIN SODIUM EXTENDED 100MG CAPSULE PO SCH (13:00)
[2022-08-15 16:00] VITALS: BP 140/81
[2022-08-15 16:58] VITALS: BP 140/81
== END 2022-08-15 18:35 | disposition home or self-care (01) | DRG 177 ==
LOC: ER 14:45 → 7EST 18:45
PROVIDERS: ADMIT Internal Medicine; ATTEND Internal Medicine
DX: U07.1 COVID-19 (principal); J12.82 Pneumonia due to coronavirus disease 2019; E44.1 Mild protein-calorie malnutrition; I50.42 Chronic combined systolic (congestive) and diastolic (congestive) heart failure; D64.9 Anemia, unspecified; I11.0 Hypertensive heart disease with heart failure; F03.90 Unspecified dementia, unspecified severity, without behavioral disturbance, psychotic disturbance, mood disturbance, and anxiety; E11.9 Type 2 diabetes mellitus without complications; I48.91 Unspecified atrial fibrillation; G40.909 Epilepsy, unspecified, not intractable, without status epilepticus; J44.9 Chronic obstructive pulmonary disease, unspecified; R10.9 Unspecified abdominal pain; Z68.27 Body mass index [BMI] 27.0-27.9, adult; Z95.0 Presence of cardiac pacemaker
CPT/HCPCS: 36415; 36600; 71045; 80048; 80053; 81003; 82375; 82805; 82962; 83605; 83880; 84484; 85025; 87426; 87804; 93005; 94640; 97162; 99285; C9803; J0360; J1100; J1940; J2543; J3370

== ENCOUNTER 2025-04-05 11:10 | Emergency (ER) | payer MEDICARE, MEDICAID ==
[~2025-04-05] VITALS: Ht 185.4 cm; Wt 82.0 kg
[~2025-04-05 11:10] MED LIST changes: +AMLO-905 MT; -AMLO10TA4 MT; +CHOL400D7 PO; -DILANTIN PO; +FERR324T4 PO; +LEVE100023 PO; -LEVE10006 PO; -LOSA50TA3 MT; +METF-1149 PO; -P20 MT; +VALS160T28 PO
[2025-04-05 11:13] VITALS: O2SAT 99
[2025-04-05 13:25] VITALS: BP 137/75; PULSE 61; RESP 12; TEMP 36.9; O2SAT 99
== END 2025-04-05 13:57 | disposition home or self-care (01) ==
LOC: ER 11:10
DX: T83.9XXA Unspecified complication of genitourinary prosthetic device, implant and graft, initial encounter (principal); E11.9 Type 2 diabetes mellitus without complications; I11.0 Hypertensive heart disease with heart failure; I50.9 Heart failure, unspecified; F03.911 Unspecified dementia, unspecified severity, with agitation; J44.9 Chronic obstructive pulmonary disease, unspecified; Z79.01 Long term (current) use of anticoagulants; Z79.51 Long term (current) use of inhaled steroids; Z95.0 Presence of cardiac pacemaker; Z86.73 Personal history of transient ischemic attack (TIA), and cerebral infarction without residual deficits; Z79.899 Other long term (current) drug therapy; Z79.84 Long term (current) use of oral hypoglycemic drugs; Z98.890 Other specified postprocedural states; Y92.89 Other specified places as the place of occurrence of the external cause
CPT/HCPCS: 51702; 99284

== ENCOUNTER 2025-08-09 07:56 | Inpatient (IN) | payer MEDICARE, MEDICAID ==
[~2025-08-09] VITALS: Ht 190.5 cm; Wt 75.7 kg
[2025-08-09 08:50] LABS: CREATININE 1.2 mg/dL (0.6-1.3); UREA NITROGEN BLOOD 10 mg/dL (9-23)
[2025-08-09 08:52] LABS: TROPONIN I HIGH SENSITIVITY 26 ng/L (3.0-53)
[2025-08-09 08:54] LABS: BASOPHILS % 0.5 % (0.0-2.0); EOSINOPHILS % 10.6 % (0.0-5.0); HEMATOCRIT. 35.6 % (42.0-52.0); HEMOGLOBIN. 11.3 g/dL (14.0-18.0); LYMPHOCYTES % 28.5 % (20.0-50.0); MEAN PLATELET VOLUME 8.9 fl (7.4-10.4); MONOCYTES % 11.6 % (2.0-8.0); NEUTROPHILS % 48.8 % (40.0-76.0); PLATELET 221 x1000/uL (130-400); RED BLOOD CELL COUNT 4.29 mill/uL (4.7-6.1); RED CELL DISTRIBUTION WIDTH 17.7 % (11.6-14.6)
[2025-08-09] MEDS: LEVOFLOXACIN 500MG PREMIX 100 ML IV ONE (09:55)
[2025-08-09] MEDS ORDERED: DEXTROSE 50% WATER 50ML SYRINGE IV PRN (13:30)
[2025-08-09] MEDS ORDERED: ACETAMINOPHEN 325MG TABLET PO PRN (13:30)
[2025-08-09] MEDS ORDERED: ONDANSETRON HCL 4MG/2ML INJ IV PRN (13:30)
[2025-08-09] MEDS ORDERED: GUAIFENESIN 200MG/10ML SUGAR FREE UDC PO PRN (13:30)
[2025-08-09] MEDS ORDERED: ZOLPIDEM TARTRATE 5MG TABLET PO PRN (13:30)
[2025-08-09] MEDS: METHYLPREDNISOLONE SOD SUCC 40MG/ML (ACT-O-VIAL) IV SCH (14:12)
[2025-08-09] MEDS: PIPERACILLIN/TAZO 3.375G/50ML 50 ML IV SCH (14:13)
[2025-08-09] MEDS: POLYETHYLENE GLYCOL 3350 (17GM) 1 DOSE PACK PO SCH (14:13)
[2025-08-09] MEDS: DEXTROSE 5% WATER 1,000 ML IV SCH (14:13)
[2025-08-09] MEDS: LACTULOSE 20G/30ML UDC PO SCH (14:17)
[2025-08-09] MEDS: IPRATROPIUM/ALBUTEROL 0.5-3(2.5)MG/3ML NEB HHN SCH (15:28)
[2025-08-09 15:40] VITALS: PULSE 66; RESP 18; O2SAT 96
[2025-08-09 16:00] VITALS: BP 154/92; PULSE 65; RESP 22; TEMP 36.7; O2SAT 96
[2025-08-09] MEDS ORDERED: PHEN100C4 PO (16:48)
[2025-08-09] MEDS ORDERED: DAPA10TA MT (16:48)
[2025-08-09] MEDS: FUROSEMIDE 40MG TABLET PO SCH (17:03)
[2025-08-09] MEDS: ENOXAPARIN 40MG/0.4ML SYR SUBCUT SCH (17:04)
[2025-08-09] MEDS: BLOOD SUGAR DIAGNOSTIC STRIP TEST SCH (17:15)
[2025-08-09] MEDS: INSULIN LISPRO 100 UNITS/ML SUBCUT SCH (17:16)
[2025-08-09 17:32] VITALS: BP 158/90; PULSE 70; RESP 18; TEMP 36.7516
[2025-08-09 20:00] VITALS: BP 154/72; PULSE 69; RESP 22; O2SAT 97
[2025-08-09 20:38] VITALS: PULSE 69; RESP 16; O2SAT 98
[2025-08-09] MEDS: LEVETIRACETAM 500MG/5ML CUP PO SCH (22:25)
[2025-08-10] VITALS (11 sets, daily range): BP systolic 125–143; BP diastolic 53–71; PULSE 66–69; RESP 14–30; TEMP 36.6–36.7; O2SAT 87–100
[2025-08-10 00:43] LABS: CLARITY URINE CLOUDY (CLEAR); COLOR URINE DARK YELLOW (YELLOW); GLUCOSE URINE 3+ (NEGATIVE); KETONES URINE TRACE (NEGATIVE); LEUKOCYTE ESTERASE URINE 1+ (NEGATIVE); NITRITE URINE POSITIVE (NEGATIVE); OCCULT BLOOD URINE NEGATIVE (NEGATIVE); PH URINE 7.0 (4.5-8.0); PROTEIN URINE 2+ (NEGATIVE); SPECIFIC GRAVITY URINE 1.035 (1.005-1.030); UROBILINOGEN URINE 1.0 E.U./dL (0.2-1.0)
[2025-08-10 01:27] LABS: *AMPHETAMINES SCREEN URINE NEGATIVE (NEGATIVE); *BARBITURATES SCREEN URINE NEGATIVE (NEGATIVE); *BENZODIAZEPINES SCREEN URINE NEGATIVE (NEGATIVE); *COCAINE SCREEN URINE NEGATIVE (NEGATIVE); METHADONE URINE SCREEN NEGATIVE (NEGATIVE); OPIATES URINE SCREEN PRESUMPTIVE POSITIVE (NEGATIVE); PHENCYCLIDINE URINE SCREEN NEGATIVE (NEGATIVE)
[2025-08-10 01:28] LABS: CANNABINOID URINE SCREEN NEGATIVE (NEGATIVE); ECSTASY MDMA SCREEN URINE NEGATIVE (NEGATIVE)
[2025-08-10 02:42] LABS: BACTERIA URINE 2+; RBC URINE NONE SEEN /hpf (0-2); SQUAMOUS EPITHELIAL CELL URINE FEW /lpf (RARE/1+)
[2025-08-10 02:43] LABS: AMORPHOUS SEDIMENT URINE 2+ /lpf
[2025-08-10] MEDS ORDERED: BLOOD SUGAR DIAGNOSTIC STRIP TEST SCH (06:50)
[2025-08-10 07:09] LABS: CREATININE 1.1 mg/dL (0.6-1.3); UREA NITROGEN BLOOD 10 mg/dL (9-23)
[2025-08-10 07:10] LABS: LACTATE DEHYDROGENASE 255 IU/L (120-246)
[2025-08-10 07:18] LABS: BASOPHILS % 0.3 % (0.0-2.0); EOSINOPHILS % 0.1 % (0.0-5.0); HEMATOCRIT. 34.1 % (42.0-52.0); HEMOGLOBIN. 10.8 g/dL (14.0-18.0); LYMPHOCYTES % 17.5 % (20.0-50.0); MEAN PLATELET VOLUME 9.1 fl (7.4-10.4); MONOCYTES % 5.1 % (2.0-8.0); NEUTROPHILS % 77.0 % (40.0-76.0); PLATELET 217 x1000/uL (130-400); RED BLOOD CELL COUNT 4.11 mill/uL (4.7-6.1); RED CELL DISTRIBUTION WIDTH 17.5 % (11.6-14.6)
[2025-08-10] MEDS ORDERED: INSULIN LISPRO 100 UNITS/ML SUBCUT SCH (07:20)
[2025-08-10] MEDS: AMLODIPINE 10MG TABLET PO SCH (08:28)
[2025-08-10] MEDS: NA PHOS,M-B/NA PHOS,DI-BA ENEMA 118ML PR SCH (09:00)
[2025-08-10 11:23] LABS: INR 1.2
[2025-08-10] MEDS: ATORVASTATIN CALCIUM 20MG TABLET PO SCH (20:54)
[2025-08-11] VITALS (12 sets, daily range): BP systolic 102–162; BP diastolic 66–121; PULSE 63–89; RESP 12–32; TEMP 36.3–36.7; O2SAT 94–100
[2025-08-11 09:50] LABS: PROTEIN BODY FLUID 2.4 gm/dL
[2025-08-11] MEDS: ACETAMINOPHEN 325MG TABLET PO PRN (10:54)
[2025-08-11 13:08] LABS: A/G RATIO 0.6 (0.7-1.7); BETA GLOBULIN 1.2 g/dL (0.7-1.3); GAMMA GLOBULINS 2.3 g/dL (0.4-1.8); GLOBULIN TOTAL 4.5 g/dL (2.2-3.9); M-SPIKE Not Observed g/dL (Not Observed); TOTAL PROTEIN SERUM 7.2 g/dL (6.0-8.5)
[2025-08-12] VITALS (10 sets, daily range): BP systolic 136–169; BP diastolic 75–90; PULSE 67–73; RESP 11–26; TEMP 36.3–37; O2SAT 95–100
[2025-08-12] MEDS ORDERED: LEVETIRACETAM 1,000MG in NACL 100ML PREMIX IV SCH (10:00)
[2025-08-12] MEDS ORDERED: HYDRALAZINE 20MG/ML VIAL IV PRN (11:30)
[2025-08-12] MEDS: LEVETIRACETAM 1000MG PREMIX 100 ML IV SCH (11:38)
[2025-08-12] MEDS: AMLODIPINE 10MG TABLET PO SCH (19:00)
[2025-08-12] MEDS: POLYETHYLENE GLYCOL 3350 (17GM) 1 DOSE PACK PO SCH (19:01)
[2025-08-13] VITALS (12 sets, daily range): BP systolic 115–145; BP diastolic 57–95; PULSE 68–80; RESP 16–30; TEMP 36.9–37.1; O2SAT 95–100
[2025-08-13 13:04] LABS: HEMATOCRIT. 35.5 % (42.0-52.0); HEMOGLOBIN. 11.2 g/dL (14.0-18.0); MEAN PLATELET VOLUME 9.0 fl (7.4-10.4); PLATELET 219 x1000/uL (130-400); RED BLOOD CELL COUNT 4.32 mill/uL (4.7-6.1); RED CELL DISTRIBUTION WIDTH 17.4 % (11.6-14.6)
[2025-08-13 13:14] LABS: CREATININE 1.0 mg/dL (0.6-1.3); UREA NITROGEN BLOOD 18 mg/dL (9-23)
[2025-08-13 14:19] LABS: LYMPHOCYTES % MANUAL 7.0 % (20.0-50.0); MONOCYTES % MANUAL 5.0 % (2.0-8.0); NEUTROPHILS % MANUAL 88.0 % (45.0-75.0)
[2025-08-13 14:20] LABS: PLATELET ESTIMATE NORMAL
== END 2025-08-13 20:14 | disposition home or self-care (01) | DRG 291 ==
LOC: ER 07:56 → 3WST 09:28 → EDBEDREQ 09:30 → EDBEDREQTM 09:30 → 3WST 08-10 23:06
PROVIDERS: ADMIT Internal Medicine; ATTEND Internal Medicine
PROC: 0W9B3ZZ Drainage of Left Pleural Cavity, Percutaneous Approach (ICD-10-PCS; principal; 2025-08-11)
DX: I11.0 Hypertensive heart disease with heart failure (principal); I50.31 Acute diastolic (congestive) heart failure; J91.8 Pleural effusion in other conditions classified elsewhere; J44.9 Chronic obstructive pulmonary disease, unspecified; E11.9 Type 2 diabetes mellitus without complications; G40.909 Epilepsy, unspecified, not intractable, without status epilepticus; F03.90 Unspecified dementia, unspecified severity, without behavioral disturbance, psychotic disturbance, mood disturbance, and anxiety; S51.811A Laceration without foreign body of right forearm, initial encounter; S40.211A Abrasion of right shoulder, initial encounter; S30.0XXA Contusion of lower back and pelvis, initial encounter; Z86.73 Personal history of transient ischemic attack (TIA), and cerebral infarction without residual deficits; Z79.899 Other long term (current) drug therapy; X58.XXXA Exposure to other specified factors, initial encounter; Y93.89 Activity, other specified; Y92.89 Other specified places as the place of occurrence of the external cause; Y99.8 Other external cause status
CPT/HCPCS: 32555; 36415; 71045; 76604; 80048; 80305; 81003; 82040; 82962; 83036; 83615; 83880; 84155; 84165; 84484; 85025; 88108; 93005; 94070; 94640; 94664; 96361; 96365; 99285; A4606; A4615; J1650; J1815; J1953; J1956; J2543; J2919; J7070